=== PATIENT | female | born 1955 | race Caucasian/White ===

== ENCOUNTER 2016-11-04 05:46 | Day surgery (SDC) | payer BC ==
[2016-11-04] VITALS (30 sets, daily range): BP systolic 130–221; BP diastolic 67–100; PULSE 68–93; RESP 15–20; TEMP 95.9–98.9; O2SAT 90–99; Ht 170.2 cm; Wt 97.5 kg
[~2016-11-04] VITALS: Ht 170.2 cm; Wt 97.5 kg
[~2016-11-04 05:46] MED LIST: LISI1TAB9 PO; SERT-104 PO
[2016-11-04] MEDS ORDERED: MIDAZOLAM 2mg/2ml INJECTION IV ONE (06:45)
--- NOTE | 2016-11-04 06:50 | ANESPREOP ---
Anesthesia Record Date and Time DATE: 11/04/16 TIME: 06:46 Pre-Op Diagnosis left humerus fracture Proposed Surgical Procedure ORIF LEFT ARM NPO since: 2199 Allergies: Coded Allergies: Penicillins (Verified Allergy, Unknown, 05/25/15) aspirin (Verified Adverse Reaction, Unknown, CAUSE NAUSEA, 05/25/15) Uncoded Allergies: SOME METAL (Allergy, Unknown, RASH, 05/25/15) Ht/Wt/BMI Height: 5 ' 7.00 " Weight: 96.300 kg BMI: 33.3 kg/m2 Vital Signs Date Time Temp Pulse Resp B/P Pulse Ox O2 Delivery O2 Flow Rate FiO2 11/04/16 06:24 70 16 11/04/16 06:21 182/77 11/04/16 05:55 98.6 93 Room Air Medications Inpatient Medications Current Medications Medications (Trade) Dose Ordered Sig/Lele Start Time Stop Time Status Last Admin Dose Admin Lactated Ringer's (Lactated Ringers) 1,000 ml @ 50 mls/hr Q20H 11/04/16 07:00 Lisinopril/Hydrochlorothiazide (Lisinopril-Hctz 10-12.5 mg Tab) 1 Each Tablet, 1 TAB PO DAILY, (Reported) Last Taken: on 11/03/16 1000 Sertraline Hcl (Zoloft) 50 Mg Tablet, 50 MG PO DAILY, (Reported) Last Taken: on 11/04/16 0415 Currently on Beta Wilber: No Medical/Surgical History Anesthesia PMH: Reports: *Dyspnea (WITH EXERTION), *Hypertension, Anesthesia Reactions (NO AIRWAY ISSUES), Arthritis (GENERALIZED), Denies: *Angina, * Diabetes, *IN, Asthma, CHF, COPD, CVA/Stroke/TIA, Cancer, Clotting Problems, Deep Vein Thrombosis, Glaucoma, Hepatitis, Hiatal Hernia, Malignant Hyperthermia , Pneumonia, Reflux, Renal Disease, Seizures, Sleep Apnea, Thyroid Disease, Tuberculosis Smoking Status: Former smoker Use Chewing Tobacco?: No Second Hand Exposure: No Substance Use Type: does not use Alcohol Intake: none HX of Last Menstrual Period: HYST Past Surgical History Orthopedic Surgeries: No Abdominal Surgeries: Yes - APPY Genitourinary Surgeries: No Cardiac Surgeries: No Endocrine Surgeries: No Reproductive Surgeries: Yes - HYST W/ BSO Neurological Surgeries: No Ear Surgeries: No Nose Surgeries: No Throat Surgeries: No Other Surgeries: Yes - HYST W/ BSO Anesthesia Adverse Reactions: FOUND none Hx of Motion Sickness: No Pertinent Findings EKG Rhythm: Sinus Rhythm Physical Exam Respiratory: Lungs clear Cardiovascular: FOUND Regular rate, rhythm, FOUND No murmur Airway Assessment Mallampati Score: II TMD: 3 Fingerbreadths Teeth: Upper Dentures, Lower Dentures Overall Assessment: May Be Diff Intubation ASA: 2 Plan Anesthesia Plan: GETA Peripheral Nerve Block: Interscalene Block - LT Discussion Discussed risks/options/alternatives of anesthesia and questions answered. Patient consents. Nursing pain assessment noted. Present: Family Member Attestation Statement Prior to the delivery of any anesthetic medication, I examined the patient, developed the plan, obtained the patient's consent and discussed the risk and benefits of the procedure with the patient/guardian. REED CHASE CRNA November 04, 2016 06:49
[2016-11-04] MEDS ORDERED: CLINDAMYCIN 600mg IVPB 50 ML IV ONE (07:00)
[2016-11-04] MEDS ORDERED: LIDOCAINE 1% (10mg/ml) 2ml SDV INJ ONE (07:00)
[2016-11-04] MEDS ORDERED: LR 1,000 ML IV SCH (07:00)
[2016-11-04] MEDS ORDERED: LIDOCAINE 1% (10mg/ml) 5ml VIAL ID ONE (07:16)
[2016-11-04] MEDS ORDERED: ROCURONIUM 50mg/5ml INJECTION IV ONE (07:16)
[2016-11-04] MEDS ORDERED: LABETALOL 20mg/4ml INJECTION IV ONE (08:42)
[2016-11-04] MEDS ORDERED: FENTANYL 100mcg/2ml INJECTION IV ONE (08:58)
[2016-11-04] MEDS ORDERED: PHENYLEPHRINE 10mg/ml INJECTION IV ONE (08:58)
[2016-11-04] MEDS ORDERED: SALINE FLUSH 10ml SYRINGE IVF ONE (08:58)
--- NOTE | 2016-11-04 09:05 | ANESPD ---
Peripheral Nerve Blockade Physician: Trent Lara MD Date: 11/04/16 Surgical Procedure: orif left humerus Discussion Discussed risks/options/alternatives of anesthesia and questions answered. Patient consents. Nursing pain assessment noted. Block Start: 06:53 Block Stop: 07:01 Block Employed: [employer] Indication: post-operative pain Position: supine Patient: Consent, risks/benefits discussed, Informed, post block act. discussed Monitors: EKG, SpO2, NIBP IV Sedation: Yes Sedation: sedate w/meaningful contact Midazolam (mg): 2 Initial Vital Signs First Documented Vital Signs Date Time Temp Pulse Resp B/P Pulse Ox O2 Delivery O2 Flow Rate FiO2 11/04/16 05:55 98.6 77 15 221/100 93 Room Air Post Vital Signs Vital Signs Date Time Temp Pulse Resp B/P Pulse Ox O2 Delivery O2 Flow Rate FiO2 11/04/16 07:10 76 16 172/74 94 Room Air 11/04/16 05:55 98.6 Initial Pain Score: 5 Post Block Score: 0 Prep: chlorhexadine/ETOH Ultrasound Used?: Yes Injectate Ropivacaine (%): 0.5 Ropivacaine (mL): 25 Was Epi 1:200,000 Used?: No Injection Injection made incrementally with constant monitoring and aspiration every [5] ml. REED CHASE CRNA November 04, 2016 09:05
[2016-11-04] MEDS ORDERED: HYDROMORPHONE 2mg/ml INJECTION IV PRN (09:15)
[2016-11-04] MEDS ORDERED: ONDANSETRON 4mg/2ml INJECTION IV PRN (09:15)
[2016-11-04] MEDS: NORMAL SALINE 1,000 ML IV SCH ×2 (10:21→22:51)
[2016-11-04] MEDS ORDERED: MORPHINE SULFATE 10 MG SYRINGE IV PRN (10:30)
[2016-11-04] MEDS ORDERED: MILK OF MAGNESIA 30 ML SUSP PO PRN (10:30)
--- NOTE | 2016-11-04 10:32 | PDPROCED ---
Immediate Operative Note DATE: 11/04/16 TIME: 10:30 Preop Diagnosis: Left post traumatic proximal humerus fracture of greater tuberosity and surgical neck Postop Diagnosis: Left post traumatic proximal humerus fracture of greater tuberosity and surgical neck Surgical Procedures: Other (Left shoulder ORIF) Surgeon: Marco Front Office Representative: LUIS ALBERTO Colvin Anesthesia: General (plus regional block) Complications: none Estimated Blood Loss see anesthesia SKIP ARCINIEGA November 04, 2016 10:32
--- NOTE | 2016-11-04 11:18 | NUR ---
ARRIVED TO FLOOR PT ARRIVED TO THE FLOOR AT THIS TIME. PT ALERT AND ORIENTED X3. VITAL SIGNS STABLE, ELEVATED BLOOD PRESSURE THAT WAS PRESENT PRIOR TO SURGERY. PT O2 SATS AT 92%. THE PT DENIES PAIN AT THIS TIME, WILL CONTINUE TO MONITOR. FAMILY PRESENT AT BEDSIDE.
--- NOTE | 2016-11-04 11:50 | ANESPO ---
Post-Op Note Date 11/04/16 Time: 11:45 Status Pt Participated in Evaluation: Pt participated by phone Vital Signs Date Time Temp Pulse Resp B/P Pulse Ox O2 Delivery O2 Flow Rate FiO2 11/04/16 11:30 97.6 78 18 196/92 90 Room Air 11/04/16 10:55 2.00 Respiratory Function: Airway patent, Regular respirations Cardiovascular Function: Regular pulse Mental Status: Alert/oriented Pain Level Intensity: 0 Hydration: Taking po fluids Complications during Recovery None apparent Follow-Up Instructions Instructions Per Surgeon REED CHASE CRNA November 04, 2016 11:50
[2016-11-04] MEDS ORDERED: LISINOPRIL/HCTZ 10mg/12.5mg TABLET PO ONE (12:00)
[2016-11-04] MEDS: ONDANSETRON 4mg/2ml INJECTION IV PRN (12:22)
[2016-11-04] MEDS: CLINDAMYCIN 900mg IVPB 50 ML IV SCH ×2 (13:18→19:03)
--- NOTE | 2016-11-04 14:01 | DI ---
Indication: ITS.REASON: ORIF L PROXIMAL HUMERUS PROCEDURE: RF HUMERUS LEFT 2 VIEWS: Encounter: Initial Comparison: None available Findings: Two working C-arm views were obtained in surgery of the left shoulder and AP and lateral projection. Prosthetic sideplate is now seen involving the surgical neck fracture which is held in fairly normal anatomic alignment. Total fluoroscopy time: 38 seconds Impression: Normal alignment of the left humeral surgical neck fracture by side plate fixation. .
--- NOTE | 2016-11-04 14:18 | OPNOTEF ---
DATE OF OPERATION November 04, 2016 PREOPERATIVE DIAGNOSIS Left proximal humerus fracture involving surgical neck and greater tuberosity. POSTOPERATIVE DIAGNOSIS Left proximal humerus fracture involving surgical neck and greater tuberosity. PROCEDURE Open reduction internal fixation left proximal humerus fracture to include greater tuberosity and surgical neck fracture. SURGEON Trent Lara MD VOLUNTEER PATIENT REPRESENTATIVE Dioni Weller PA-C ANESTHESIA General with regional block. FLUIDS Please refer to Anesthesia chart. EBL Less than 50 mL. COMPLICATIONS None. CONDITION Stable in recovery room. IMPLANTS Abiodun proximal humeral locking plates with multiple #2 high strength sutures. DESCRIPTION OF PROCEDURE Patient was identified in the preoperative holding area. The operative extremity was identified and appropriately marked. Risks, benefits, alternatives and potential complications were discussed and informed consent was obtained. The patient was taken to the operating theatre and placed supine on the operating table. Appropriate cardiorespiratory monitors were applied. General anesthesia was induced. A regional block had been placed in preop holding by Anesthesia. The patient was positioned approximately 45 degree head-elevated position at the far left edge of the bed and she was secured with post and additional straps. Head and neck were secured in a safe position. Fluoroscopy was brought in to assure we were able to obtain good views. The left upper extremity was then sterilely prepped and draped in the usual fashion. Surgical time-out was performed, confirmed with myself, the rotary derrick operator and circulating nurse. Preoperative antibiotics were given. Surgical landmarks were delineated on the skin with a surgical marking pen. This was prior to placement of a biodrape. A standard anterior incision was created from the tip of the coracoid distally to the deltoid insertion. Electrocautery was used for hemostasis as dissection was carried through the subcutaneous fat. Full-thickness subcutaneous flaps were elevated. The cephalic vein was then identified and mobilized. Retractors were placed. The patient had marked adhesions underneath the deltoid as this was a ogyps-eibe-lrb fracture. These were bluntly dissected with a finger and then additionally using a Parsons elevator. The clavipectoral fascia was incised and a self-retaining retractor was placed under the deltoid and the conjoint tendon. Extensive fibrotic bursa was present which was removed with a combination of rongeur sharp and blunt dissection. The arm was placed in internal rotation and the fracture site was identified for the tuberosity. Again, there was marked fibrous tissue present from early healing. This was meticulously removed with a combination of curettes and rongeur. The fracture edges were then identified of the fragment of the greater tuberosity. This did have some comminution at the posterior-superior aspect adjacent to the rotator cuff insertion. The base of the fracture was copiously debrided as well again of any fibrous tissue, taking care to leave any cancellus bone present. Periosteum was elevated anterior to the fracture and inferior as well. A digit was inserted into the fracture site after placement of sutures at the bone tendon interface of the greater tuberosity. This was then freed posteriorly with blunt dissection with a finger until the fragment was freely mobile. We then positioned the fragment and at this point noted that her surgical neck fracture was not truly nondisplaced. It was slightly posteriorly rotated and in slight valgus. This diminished the size of the donor site for the greater tuberosity fragment. We gently tried to elevate the head into a slightly more varus position to help parisi in this piece. However, she already had a fair amount of healing and we elected not to get too aggressive so as not to disturb this early healing. We were able to trim a small portion of the inferior aspect of the greater tuberosity that afforded us to parisi this in much better. While maintaining reduction, a K-wire was placed through the tuberosity fragment into the humeral head. Fluoroscopy was then brought in which showed overall good reduction. The shoulder was then placed in slight internal rotation. The bicipital groove was identified. The plate was placed just posterior to the bicipital groove. The posterior margin screws would actually capture the tuberosity fragment. The plate was positioned with K-wires and noted to overall be in satisfactory position utilizing fluoroscopy. We placed the oblong hole in the shaft and secured this down to bone which effectively positioned the plate onto the bone directly. Attention was then turned towards drilling and filling of the proximal locking screws of the humeral head. External tower guides were inserted. These were then drilled and then depth measured with a depth gauge. A total of five head screws were then placed which afforded good fixation of the surgical neck portion of the fracture. The remaining two distal shaft screws were then placed with cortical screws in a standard AO fashion. The sutures that had been passed through the bone tendon interface were then passed through the plate in an arcade over the top and back of the greater tuberosity. These were sutured and tied to the plate itself in appropriate position. Two additional sutures were placed through holes in the plate and added to the bone tendon interface for additional fixation. The guide wires were then removed. The shoulder was copiously irrigated. X-rays were then confirmed which showed overall good position of the fracture fragments and good alignment. No evidence of screw penetration into the joint. Additional deep irrigation was then performed as retractors were placed. The cephalic vein was inspected and noted to be intact. There was a small tributary bleeding which was cauterized. This next layer was then copiously irrigated as well. The deltopectoral interval was loosely closed with running #1 Vicryl suture. Skin was closed in a standard layered fashion. Sterile dressings were applied followed by a sling. The patient was awakened from anesthesia and taken to the recovery room in stable and satisfactory condition. KRISHNA
--- NOTE | 2016-11-04 18:45 | NUR ---
PROGRESS NOTE PT ALERT AND ORIENTED X3. VITAL SIGNS STABLE, ON RA AT THIS TIME. THE PT HAS MET DISCHARGE CRITERIA BUT WILL BE STAYING OVERNIGHT. THE PT HAS REQUIRED A DOSE OF PAIN MEDICATION THIS SHIFT SINCE ARRIVING TO THE FLOOR. PT HAS BEEN UP WALKING IN THE HALLS X1 THIS SHIFT AND IS UP WITH A X1 ASSIST, GAIT BELT AND CANE. THE PT HAS DAUGHTER IN ROOM AT THIS TIME. THE PT HAD SOME NAUSEA UPON ARRIVAL AND WAS GIVEN ONE DOSE OF PRN ZOFRAN BUT HAS SINCE TOLERATED A REGULAR DIET WELL. THE PT HAS HAD ADEQUATE URINE OUTPUT AND NO BOWEL MOVEMENT THIS SHIFT. WEARS A BRIEF FOR SOME INCONTINENCE. NO OTHER CONCERNS NOTED, WILL CONTINUE TO MONITOR.
[2016-11-04] MEDS: SENNA + DOCUSATE TAB PO SCH (20:18)
[2016-11-05 00:35] VITALS: BP 154/73; PULSE 70; RESP 18; TEMP 98.6; O2SAT 94
[2016-11-05] MEDS: CLINDAMYCIN 900mg IVPB 50 ML IV SCH (01:00)
--- NOTE | 2016-11-05 04:47 | NUR ---
PROGRESS NOTE PT ALERT/ORIENTED X3. VITAL SIGNS STABLE, ON ROOM AIR. THE PT HAS REQUIRED NORCO 7.5 X2 Q5H THIS SHIFT. PT HAS AMBULATED TO THE BATHROOM SEVERAL TIMES AND IS UP WITH A X1 ASSIST, GAIT BELT AND CANE. THE PT'S DAUGHTER WAS AT BEDSIDE MUCH OF THE EVENING. HAS TOLERATED FOOD WELL. THE PT HAS HAD ADEQUATE URINE OUTPUT AND NO BOWEL MOVEMENT THIS SHIFT. MEPILEX DRESSING ON LEFT SHOULDER CDI. WEARS A BRIEF, FOR POSSIBLE INCONTINENCE. RESTING COMFORTABLY AT THIS TIME. CALL LIGHT IN REACH. WILL CONTINUE TO MONITOR.
[2016-11-05 05:15] LABS: BASOPHILS % (AUTO) 0.2 % (0-2); EOSINOPHILS # (AUTO) 0.2 T/MM3 (0-0.5); EOSINOPHILS % (AUTO) 1.5 % (0-4); HCT - HEMATOCRIT 35.3 % (36-46); HGB - HEMOGLOBIN 11.2 GM/DL (12-16); IMMATURE GRANULOCYTE # (AUTO) 0.01 T/MM3 (0.00-0.03); IMMATURE GRANULOCYTE % (AUTO) 0.1 % (0.0-0.5); LYMPHOCYTES # (AUTO) 2.5 T/MM3 (1-4.8); LYMPHOCYTES % (AUTO) 22.1 % (23-45); MEAN CORPUSCULAR HGB 29.9 UUG (26-34); MEAN CORPUSCULAR HGB CONC(MCHC 31.7 GM/DL (31-37); MEAN CORPUSCULAR VOLUME 94.4 UM3 (80-100); MEAN PLATELET VOLUME 10.3 UM3 (9.4-12.4); MONOCYTES # (AUTO) 1.1 T/MM3 (0-0.8); MONOCYTES % (AUTO) 9.5 % (0-9.0); NEUTROPHILS #(AUTO)-ABSOLUTE 7.6 T/MM3 (1.8-7.7); NEUTROPHILS % (AUTO) 66.6 % (33-66); RED BLOOD COUNT 3.74 M/MM3 (4.00-5.20); WBC - WHITE BLOOD COUNT 11.4 T/MM3 (4.5-11.0)
[2016-11-05 05:24] LABS: ANION GAP 7 MEQ/L (5-15); BUN/CREATININE RATIO 17 RATIO (6-26); CALCIUM 8.9 MG/DL (8.4-10.2); CHLORIDE 103 MEQ/L (98-107); CO2 - CARBON DIOXIDE 29 MEQ/L (22-30); CREATININE 0.6 MG/DL (0.7-1.2); GLOMERULAR FILTRATION RATE 102; GLUCOSE 140 MG/DL (65-110); POTASSIUM 4.2 MEQ/L (3.6-5); SODIUM 139 MEQ/L (134-144)
[2016-11-05 07:17] VITALS: BP 161/71; PULSE 75; RESP 16; TEMP 98.4; O2SAT 94
[2016-11-05 07:24] VITALS: BP 161/71; PULSE 75; RESP 16; TEMP 98.4; O2SAT 94
[2016-11-05] MEDS ORDERED: HYDR-4072 PO (08:30)
[2016-11-05] MEDS ORDERED: ONDA4TAB4 PO (08:30)
[2016-11-05] MEDS ORDERED: POLY17PO6 PO (08:30)
[2016-11-05] MEDS: SENNA + DOCUSATE TAB PO SCH (08:33)
[2016-11-05] MEDS ORDERED: LISINOPRIL/HCTZ 10mg/12.5mg TABLET PO SCH (09:00)
[2016-11-05] MEDS ORDERED: SERTRALINE 50 MG TABLET PO SCH (09:00)
[2016-11-05] MEDS: ONDANSETRON 4mg/2ml INJECTION IV PRN (09:21)
[2016-11-05 09:30] VITALS: PULSE 75; RESP 16
--- NOTE | 2016-11-05 09:35 | NUR ---
CM CM IN TO VISIT PATIENT, SHE IS A&O. DAUGHTER IS AT THE BEDSIDE. PATIENT PLANS TO DISCHARGE TO DAUGHTER'S HOME TO RECOOPERATE UNTIL ABLE TO RETURN TO HER HOME. DENIES ADDITIONAL SERVICES NEEDED. THIS CM CONTACT INFORMATION GIVEN. Addendum: 11/05/16 at 0937 by SUZAN IBARRA RN Amended: Links added.
--- NOTE | 2016-11-05 10:55 | NUR ---
DISCHARGE NURSING NOTE THE PT IS DISCHARGED HOME FROM THE HOSPITAL AT THIS TIME VIA WHEELCHAIR THROUGH THE MAIN HOSPITAL ENTRANCE. THE PT IS ACCOMPANIED BY HER DAUGHTER. THIS RN WENT OVER DISCHARGE PAPERWORK WITH THE PT AND THE PT'S DAUGHTER INCLUDING DISCHARGE DIET, ACTIVITY, MEDICATIONS, INCISION CARE, SLING INSTRUCTIONS AND FOLLOW-UP APPOINTMENTS. THE PT AND DAUGHTER VERBALIZED UNDERSTANDING. THE PT WAS GIVEN THE ORIGINALS OF THE PRESCRIPTIONS. THE PT'S IV SITE WAS DISCONTINUED AND THE ID BAND WAS REMOVED. NO CONCERNS NOTED AT TIME OF DISCHARGE. PT INSTRUCTED TO CALL WITH ANY QUESTIONS/CONCERNS.
--- OUTSIDE RECORDS SUMMARY | 2016-11-06 13:17 | XMS REPORT | Continuity of Care Document ---
Author Author [facility] Organization [facility] Address Unknown Phone Unavailable Support Name Relationship Address Phone Markus MONROE MD Caregiver [address] [place] [id number] Unavailable JANNY SPAULDING MD Caregiver [address] [place] [address] Unavailable JANNY SPAULDING MD Caregiver [address] [place] [address] Unavailable SARAH ELDER Next Of Kin [address] [id number] Insurance Providers Guarantor Mona Elder Address [address] [place] [address] Email DENIED 16 Payer [employer] Other Policy Number [id number] Subscriber's Name CatSarah Relationship 01 Spouse Group Number [id number] Advance Directives Directive Response Recorded Date/Time Ordered Resuscitation Status Full Code 11/03/16 5:03pm Resuscitation Documents on File No 11/04/16 6:08am DPOA for Healthcare Only No 11/04/16 6:08am Living Will No 11/04/16 6:08am Problems Active Problems Medical Problem Onset Date Status Head injury Unknown Acute Right wrist sprain Unknown Acute Medications Current Home Medications Medication Dose Units Route Directions Days Qty Instructions Start Date Hydrocodone/Acetaminophen (Hydrocodon-Acetaminoph 7.5-325) 7.5-325 Tablet 1-2 Tab Oral Every 4 Hours as needed for Pain 60 Tablet 11/05/16 Lisinopril/Hydrochlorothiazide (Lisinopril-Hctz 10-12.5 Mg Tab) 1 Each Tablet 1 Tab Oral Daily 05/25/15 Ondansetron Hcl (Zofran) 4 Mg Tablet 4 Mg Oral Every 6 Hours as needed for Nausea 10 Tablet 11/05/16 Polyethylene Glycol 3350 (Miralax) 17 Gm Powd.pack 17 G Oral Daily 30 Packet Take 17 Grams (1 capful), by mouth, once a day. 11/05/16 Sertraline Hcl (Zoloft) 50 Mg Tablet 50 Mg Oral Daily 09/22/12 Social History Social History Problem Response Recorded Date/Time Onset Date Status Reason for Hospitalization LEFT PROXIMAL HUMERUS FRACTURE 11/05/2016 10:07am Not Applicable Not Applicable Chewing Tobacco Status No 09/22/2012 2:29pm Not Applicable Not Applicable Hx Substance Use No 11/04/2016 6:11am Not Applicable Not Applicable Hx Alcohol Use Y OCCASIONALLY 11/04/2016 6:11am Not Applicable Not Applicable Has the pt used tobacco in the last 12 months No 11/04/2016 6:11am Not Applicable Not Applicable Tobacco Usage none 05/26/2015 12:46am Not Applicable Not Applicable Query Response Start Date Stop Date Smoking Status Former smoker Hospital Discharge Instructions Instructions: Care Instructions: I was in the hospital because (patient own words): LEFT SHOULDER SURGERY Discharge Diet: regular Discharge Activity: use sling. no use of left shoulder Follow Up Appointments: as scheduled. Pending Lab / Results: No Pending Lab Expected Signs/Symptoms: controlled pain Notify Physician If: fever, chills, uncontrolled pain During Business Hours:: Please call the physician's office at [phone] After Business Hours:: Please call [phone] and have the precision honing machine operator page the physician. Pain Management/Treatment: use [place] Pain Scale Utilized to Educate Patient: 0-10 Pain Scale Wound/Incision Care: keep dressing on until follow up Condition at time of discharge: Good Plan of Care Discharge Date 11/05/16 10:55am Instructions/Education Provided [facility] Postop Instructions [facility] General Instructions Prescriptions See Medication Section Functional Status Query Response Date Recorded Mobility Status Ambulatory November 04, 2016 12:27pm Assistive Devices None November 04, 2016 12:27pm Activity Limitations None November 04, 2016 12:27pm Feeding Ability Independent November 04, 2016 12:27pm Toileting Ability Independent November 04, 2016 12:27pm Grooming Ability Independent November 04, 2016 12:27pm Dressing Ability Independent November 04, 2016 12:27pm Driving Ability Independent November 04, 2016 12:27pm Housework Ability Independent November 04, 2016 12:27pm Meal Preparation Ability Independent November 04, 2016 12:27pm Stair Climbing Ability Independent November 04, 2016 12:27pm Ability to complete ADL's impeded by No change November 04, 2016 12:27pm Cognitive/Perceptual Impairments Impaired vision November 04, 2016 12:27pm Visual Assistive Devices Glasses With patient November 04, 2016 12:27pm Allergies, Adverse Reactions, Alerts Allergen Type Severity Reaction Status Last Updated Penicillin Allergy Unknown Active 05/25/15 Aspirin Adverse Reaction Unknown CAUSE NAUSEA Active 05/25/15 SOME METAL Allergy Unknown RASH Active 05/25/15 Immunizations Query Response on File Recorded Date/Time Hx Influenza Vaccination No 11/04/16 6:11am Hx Pneumococcal Vaccination No 11/04/16 6:11am Hx Influenza Vaccination No 11/04/16 6:11am Influenza Vaccine Hx UNKNOWN 11/04/16 12:28pm Vital Signs Acute Vital Signs Vital Response Date/Time Temperature (Fahrenheit) 98.4 deg F (96.8 - 99.1) 11/05/2016 7:24am Temperature (Calculated Celsius) 36.06480 degrees C (36.0 - 37.3) 11/05/2016 7:24am Temperature Source Oral 11/05/2016 7:17am Pulse Rate (adult) 75 bpm (60 - 100) 11/05/2016 9:30am Respiratory Rate 16 breaths/min (10 - 20) 11/05/2016 9:30am O2 Sat by Pulse Oximetry 94 % (90 - 100) 11/05/2016 7:24am Oxygen Delivery Method Room Air 11/05/2016 7:17am Oxygen Delivery Method Room Air 11/05/2016 7:24am Oxygen Flow Rate 2.00 L/min 11/04/2016 10:55am Blood Pressure 161/71 mm Hg 11/05/2016 7:24am Blood Pressure Source Automatic Cuff 11/05/2016 7:24am Height (Feet) 5 feet 11/04/2016 5:55am Height (Inches) 7.00 inches 11/04/2016 5:55am Weight (Kilograms) 97.500 kg 11/05/2016 7:20am Body Mass Index (BMI) 33.3 11/04/2016 5:55am Results Laboratory Results Test Name Result Units Flags Reference Collection Date/Time Result Date/ Time Comments White Blood Count 11.4 T/MM3 H 4.5-11.0 11/05/2016 4:42am 11/05/2016 5: 15am Red Blood Count 3.74 M/MM3 L 4.00-5.20 11/05/2016 4:4211/05/2016 5: 15am Hemoglobin 11.2 GM/DL L 12-16 11/05/2016 4:4211/05/2016 5:15am Hematocrit 35.3 % L 36-46 11/05/2016 4:4211/05/2016 5:15am Mean Corpuscular Volume 94.4 UM3 80-100 11/05/2016 4:4211/05/2016 5: 15am Mean Corpuscular Hemoglobin 29.9 UUG 26-34 11/05/2016 4:422016 5:15am Mean Corpuscular Hemoglobin Concent 31.7 GM/DL 31-37 11/05/2016 4:4211/05/2016 5:15am RDW Standard Deviation 46.6 FL 36.9-50.2 11/05/2016 4:4211/05/2016 5 :15am Platelet Count 262 T/MM3 130-400 11/05/2016 4:4211/05/2016 5:15am Mean Platelet Volume 10.3 UM3 9.4-12.4 11/05/2016 4:4211/05/2016 5: 15am Neutrophils (%) (Auto) 66.6 % H 33-66 11/05/2016 4:11/05/2016 5: 15am Lymphocytes (%) (Auto) 22.1 % L 23-45 11/05/2016 4:4211/05/2016 5: 15am Monocytes (%) (Auto) 9.5 % H 0-9.0 11/05/2016 4:11/05/2016 5:15am Eosinophils (%) (Auto) 1.5 % 0-4 11/05/2016 4:4211/05/2016 5:15am Basophils (%) (Auto) 0.2 % 0-2 11/05/2016 4:4211/05/2016 5:15am Immature Granulocyte % (Auto) 0.1 % 0.0-0.5 11/05/2016 4:422016 5:15am Absolute Neutrophils (auto) 7.6 T/MM3 1.8-7.7 11/05/2016 4:422016 5:15am Absolute Lymphocytes (auto) 2.5 T/MM3 1-4.8 11/05/2016 4:422016 5:15am Absolute Monocytes (auto) 1.1 T/MM3 H 0-0.8 11/05/2016 4:422016 5:15am Absolute Eosinophils (auto) 0.2 T/MM3 0-0.5 11/05/2016 4:422016 5:15am Absolute Basophils (auto) 0.0 T/MM3 0-0.2 11/05/2016 4:4211/05/2016 5:15am Absolute Immature Granulocyte (auto 0.01 T/MM3 0.00-0.03 11/05/2016 4: 4211/05/2016 5:15am Icterus Index < 2 0-7 11/05/2016 4:4211/05/2016 5:24am Chemistry Specimen Hemolysis < 15 0-25 11/05/2016 4:4211/05/2016 5 :24am 0-25: Specimen Exhibited No Hemolysis. Turbidity < 20 0-20 11/05/2016 4:4211/05/2016 5:24am Sodium Level 139 MEQ/L 134-144 11/05/2016 4:4211/05/2016 5:24am Potassium Level 4.2 MEQ/L 3.6-5 11/05/2016 4:4211/05/2016 5:24am Chloride Level 103 MEQ/L 98-107 11/05/2016 4:4211/05/2016 5:24am Carbon Dioxide Level 29 MEQ/L 22-30 11/05/2016 4:4211/05/2016 5: 24am Anion Gap 7 MEQ/L 5-15 11/05/2016 4:4211/05/2016 5:24am Blood Urea Nitrogen 10.0 MG/DL 7-17 11/05/2016 4:4211/05/2016 5: 24am Creatinine 0.6 MG/DL L 0.7-1.2 11/05/2016 4:4211/05/2016 5:24am BUN/Creatinine Ratio 17 RATIO 6-26 11/05/2016 4:4211/05/2016 5:24am Glomerular Filtration Rate Calc 102 11/05/2016 4:42am 11/05/2016 5: 24am Glucose Level 140 MG/DL H 65-110 11/05/2016 4:42am 11/05/2016 5:24am Calculated Osmolality 269 MOSM/KG 261-280 11/05/2016 4:42am 11/05/2016 5:24am Calcium Level 8.9 MG/DL 8.4-10.2 11/05/2016 4:42am 11/05/2016 5:24am Name: MONA ELDER Unit #: [id number] : 1955 Sex: F Admit Date: 11/04/16 Loc / Svc: [facility] Discharge Date: DIAGNOSTIC IMAGING REPORT Report #: [id number] [place], [place] Indication: ITS.REASON: ORIF L PROXIMAL HUMERUS PROCEDURE: RF HUMERUS LEFT 2 VIEWS: Encounter: Initial Comparison: None available Findings: Two working C-arm views were obtained in surgery of the left shoulder and AP and lateral projection. Prosthetic sideplate is now seen involving the surgical neck fracture which is held in fairly normal anatomic alignment. Total fluoroscopy time: 38 seconds Impression: Normal alignment of the left humeral surgical neck fracture by side plate fixation. . Procedures Procedure Status Date Provider(s) Open reduction and internal fixation of fracture of left humerus Completed JANNY SPAULDING MD Encounters Encounter Location Arrival/Admit Date Discharge/Depart Date Attending Provider Departed [facility] Day [facility] 11/04/16 5:46am 11/05/16 10 :55am JANNY SPAULDING MD
--- OUTSIDE RECORDS SUMMARY | 2016-11-06 13:18 | XMS REPORT | Continuity of Care Document ---
Author Author [facility] Organization [facility] Address Unknown Phone Unavailable Support Name Relationship Address Phone Markus MONROE MD Caregiver [address] [place] [address] Unavailable JANNY SPAULDING MD Caregiver [address] [place] [address] Unavailable JANNY SPAULDING MD Caregiver [address] [place] [address] Unavailable SARAH ELDER Next Of Kin [address] [phone] Insurance Providers Guarantor Mona Elder Address [address] [place] [address] Email DENIED 16 Payer [employer] Other Policy Number [id number] Subscriber's Name CatSarah Relationship 01 Spouse Group Number [id number] Advance Directives Directive Response Recorded Date/Time Ordered [...] Hours:: Please call the physician's office at [phone] After Business Hours:: Please call [phone] and have the dolly operator page the physician. Pain Management/Treatment: use [place] Pain Scale Utilized to Educate Patient: 0-10 Pain Scale Wound/Incision Care: keep dressing on until follow up Condition at time of discharge: Good Plan of Care Discharge Date 11/05/16 10:55am Disposition 01 DISCHARGED HOME, SELF-CARE Instructions/Education Provided [facility] [place] Ortho Postop Instructions [facility] General Instructions Prescriptions See Medication Section Care Plan and Goals See Discharge Instructions Section Functional Status Query Response Date Recorded [...] - 99.1) 11/05/2016 7:24am Temperature (Calculated Celsius) 36.84875 degrees C (36.0 - 37.3) 11/05/2016 7:24am [...] Blood Count 3.74 M/MM3 L 4.00-5.20 11/05/2016 4:42am 11/05/2016 5: 15am Hemoglobin 11.2 GM/DL L 12-16 11/05/2016 4:4211/05/2016 5:15am Hematocrit 35.3 % L 36-46 11/05/2016 4:42am 11/05/2016 5:15am Mean Corpuscular Volume 94.4 UM3 80-100 11/05/2016 4:42am 11/05/2016 5: 15am Mean Corpuscular Hemoglobin 29.9 UUG 26-34 11/05/2016 4:422016 5:15am Mean Corpuscular Hemoglobin Concent 31.7 GM/DL 31-37 11/05/2016 4:4211/05/2016 5:15am RDW Standard Deviation 46.6 FL 36.9-50.2 11/05/2016 4:4211/05/2016 5 :15am Platelet Count 262 T/MM3 130-400 11/05/2016 4:4211/05/2016 5:15am Mean Platelet Volume 10.3 UM3 9.4-12.4 11/05/2016 4:4211/05/2016 5: 15am Neutrophils (%) (Auto) 66.6 % H 33-66 11/05/2016 4:4211/05/2016 5: 15am Lymphocytes (%) (Auto) 22.1 % L 23-45 11/05/2016 4:4211/05/2016 5: 15am Monocytes (%) (Auto) 9.5 % H 0-9.0 11/05/2016 4:4211/05/2016 5:15am Eosinophils (%) (Auto) 1.5 % 0-4 [...] 11/05/2016 5:24am Name: MONA ELDER Unit #: [id number] : 1955 Sex: F Admit Date: 11/04/16 Loc / Svc: SRG Discharge Date: DIAGNOSTIC IMAGING REPORT Report #: [id number] [place], [place] Indication: ITS.REASON: ORIF L PROXIMAL HUMERUS [...] Location Arrival/Admit Date Discharge/Depart Date Attending Provider Discharged Inpatient [facility] 11/04/16 5:46am 11/05/16 10:55am JANNY SPAULDING MD
--- NOTE | 2016-11-10 13:24 | NUR ---
ATTEMPTED [facility] FOLLOW UP CALL #1, NO ANSWER, LEFT VOICE MESSAGE TO RETURN CALL TO CM.
--- NOTE | 2016-11-12 13:53 | NUR ---
ATTEMPTED [facility] HOSP[facility] FOLLOW UP PHONE CALL #2, NO ANSWER, LEFT VOICE MESSAGE TO RETURN CALL TO CM.
== END 2016-11-05 10:55 | disposition home or self-care (01) ==
LOC: SCU 05:46 → UNDOADMIN 05:46 → SRG 05:46 → SCU 11-05 10:55 → UNDODISIN 11-05 10:55 → EDSTATUS 11-06 07:30
PROVIDERS: ATTEND Orthopaedic Surgery
DX: S42.212A Unspecified displaced fracture of surgical neck of left humerus, initial encounter for closed fracture (principal); S42.252A Displaced fracture of greater tuberosity of left humerus, initial encounter for closed fracture; M81.0 Age-related osteoporosis without current pathological fracture; M06.9 Rheumatoid arthritis, unspecified; F41.9 Anxiety disorder, unspecified; I10 Essential (primary) hypertension; W18.39XA Other fall on same level, initial encounter; Y93.K9 Activity, other involving animal care; Y92.89 Other specified places as the place of occurrence of the external cause; Y99.8 Other external cause status; Z87.891 Personal history of nicotine dependence
CPT/HCPCS: 23615; 36415; 73060; 76001; 76942; 80048; 85025; 97116; 97162; 97165; 97530; A6222; C1713; J2250; J2370; J2405; J2704; J3010; J7030; J7120